=== PATIENT | female | born 1950 | race Two or more races ===

== ENCOUNTER 2019-04-16 20:54 | Emergency (ER) | payer OTHER ==
[~2019-04-16] VITALS: Ht 157.5 cm; Wt 86.2 kg
[~2019-04-16 20:54] MED LIST: AMARYL; AVANDIA4 MG PO; AVAPRO75 MG PO; DIPRIVAN IV; ISOSORBIDE DINI20 MG PO; NEURONTIN300 MG PO; NORVASC5 MG PO; OMEPRAZOLE10 MG PO; PLAVIX75 MG PO; SYNTHROID88 MCG PO; TRAMADOL HCL50 MG PO; VERAPAMIL ER100 MG PO; ZOCOR20 MG PO
[2019-04-17] MEDS ORDERED: TESSALON PERLE100 M1 PO (00:16)
[2019-04-17] MEDS ORDERED: RESPTHERAMACH (00:16)
[2019-04-17] MEDS ORDERED: BUDESONIDE0.5 MG/2 M IH (00:16)
[2019-04-17] MEDS ORDERED: MEDROLPACK PO (00:16)
[2019-04-17] MEDS ORDERED: LEVALBUTER1.25 MG/3 IH (00:16)
== END 2019-04-17 00:22 | disposition home or self-care (01) ==
LOC: ER 20:54
DX: J06.9 Acute upper respiratory infection, unspecified (principal)

== ENCOUNTER 2019-06-05 19:38 | Emergency (ER) | payer OTHER ==
[~2019-06-05] VITALS: Ht 152.4 cm; Wt 83.9 kg
[~2019-06-05 19:38] MED LIST changes: +BUDESONIDE0.5 MG/2 M IH; +LEVALBUTER1.25 MG/3 IH; +MEDROLPACK PO; +RESPTHERAMACH; +TESSALON PERLE100 M1 PO
[2019-06-05] MEDS ORDERED: CARVEDILOL25 MG PO (19:55)
[2019-06-05] MEDS ORDERED: DIOVAN320 MG PO (19:56)
[2019-06-05] MEDS ORDERED: ISOSORBIDE DINI30 MG PO (19:56)
[2019-06-05] MEDS ORDERED: HYDRALAZINE HC100 MG PO (19:56)
[2019-06-05] MEDS ORDERED: FUROSEMIDE20 MG PO (19:56)
[2019-06-05] MEDS ORDERED: CLOPIDOGREL BIS75 MG (19:57)
[2019-06-05] MEDS ORDERED: CRESTOR40 MG PO (19:57)
[2019-06-05] MEDS ORDERED: DOXAZOSIN MESYLA4 MG PO (19:57)
[2019-06-05] MEDS ORDERED: ALLEGRA ALLERGY60 MG PO (19:58)
[2019-06-05] MEDS ORDERED: RENAL-VITE TAB0.8 MG PO (19:58)
[2019-06-05] MEDS ORDERED: SODIUM BICARBO650 MG PO (19:58)
== END 2019-06-05 23:02 | disposition home or self-care (01) ==
LOC: ER 19:38
DX: J45.998 Other asthma (principal); D64.89 Other specified anemias

== ENCOUNTER 2019-06-07 19:13 | Inpatient (IN) | payer OTHER ==
[~2019-06-07] VITALS: Ht 157.5 cm; Wt 84.4 kg
[~2019-06-07 19:13] MED LIST changes: +ALLEGRA ALLERGY60 MG PO; +CARVEDILOL25 MG PO; +CLOPIDOGREL BIS75 MG; +CRESTOR40 MG PO; +DIOVAN320 MG PO; +DOXAZOSIN MESYLA4 MG PO; +FUROSEMIDE20 MG PO; +HYDRALAZINE HC100 MG PO; +ISOSORBIDE DINI30 MG PO; +RENAL-VITE TAB0.8 MG PO; +SODIUM BICARBO650 MG PO
== END 2019-06-11 16:55 | disposition home or self-care (01) | DRG 812 ==
LOC: ER 19:13 → MEDJ 06-08 13:54
PROVIDERS: ADMIT Specialist
PROC: 30233N1 Transfusion of Nonautologous Red Blood Cells into Peripheral Vein, Percutaneous Approach (ICD-10-PCS; principal; 2019-06-08)
PROC: 4A1HXCZ Monitoring of Products of Conception, Cardiac Rate, External Approach (ICD-10-PCS; 2019-06-08)
PROC: 3E0F7GC Introduction of Other Therapeutic Substance into Respiratory Tract, Via Natural or Artificial Opening (ICD-10-PCS; 2019-06-08)
PROC: B246ZZZ Ultrasonography of Right and Left Heart (ICD-10-PCS; 2019-06-08)
DX: D50.0 Iron deficiency anemia secondary to blood loss (chronic) (principal); N18.5 Chronic kidney disease, stage 5; N17.8 Other acute kidney failure; I13.2 Hypertensive heart and chronic kidney disease with heart failure and with stage 5 chronic kidney disease, or end stage renal disease; D63.8 Anemia in other chronic diseases classified elsewhere; D63.1 Anemia in chronic kidney disease; I50.83 High output heart failure; I27.29 Other secondary pulmonary hypertension; E03.8 Other specified hypothyroidism; Z95.2 Presence of prosthetic heart valve; E11.65 Type 2 diabetes mellitus with hyperglycemia; I37.1 Nonrheumatic pulmonary valve insufficiency